=== PATIENT | male | born 1985 | race Caucasian/White ===

== ENCOUNTER 2017-10-28 11:40 | Observation (INO) | payer OTHER ==
[~2017-10-28] VITALS: Ht 170.2 cm; Wt 68.0 kg
[2017-10-28] MEDS ORDERED: IBUPROFEN 200 MG TABLET PO ONE (12:30)
[2017-10-28] MEDS ORDERED: IBUPROFEN 200 MG TABLET ONE (12:35)
[2017-10-28] MEDS ORDERED: ZIPRASIDONE 20 MG INJ IM ONE ×2 (12:54→13:00)
[2017-10-28 12:56] LABS: BASOPHILS # (AUTO) 0.02 x10^3/uL (0-0.1); BASOPHILS % (AUTO) 0 % (0-1); EOSINOPHILS # (AUTO) 0.25 x10^3/uL (0-0.4); EOSINOPHILS % (AUTO) 3 % (1-7); LYMPHOCYTES # (AUTO) 2.39 x10^3/uL (1-3.4); LYMPHOCYTES % (AUTO) 27 % (22-44); MD NO; MEAN CORPUSCULAR HEMOGLOBIN 30.8 pg (27.5-34.5); MEAN CORPUSCULAR HGB CONC 34.2 g/dL (33.2-36.2); MEAN CORPUSCULAR VOLUME 90.1 fL (81-97); MEAN PLATELET VOLUME 9.3 fL (7.4-10.4); MONOCYTES # (AUTO) 0.64 x10^3/uL (0.2-0.8); MONOCYTES % (AUTO) 7 % (2-9); NEUTROPHILS # (AUTO) 5.71 x10^3/uL (1.8-6.8); NEUTROPHILS % (AUTO) 63 % (42-75); PLATELET COUNT 258 x10^3/uL (130-400); RED BLOOD COUNT 4.99 x10^6/uL (4.38-5.82); RED CELL DISTRIBUTION WIDTH 12.7 % (9.4-14.8)
[2017-10-28 13:07] LABS: CALCIUM 8.4 mg/dL (8.5-10.1); CHLORIDE 107 mmol/L (98-107)
[2017-10-28 13:11] LABS: ALBUMIN 3.1 g/dL (3.4-5.0); CREATININE 0.81 mg/dL (0.7-1.3); SALICYLATE LEVEL 2.7 mg/dL (2.8-20.0)
[2017-10-28 13:12] LABS: ACETAMINOPHEN < 2 mcg/mL (10-30)
[2017-10-28 13:33] LABS: ANION GAP 9 mmol/L (5-15)
[2017-10-28 13:39] LABS: AMPHETAMINE SCREEN, URINE Positive (Negative); BARBITURATE SCREEN, URINE Negative (Negative); BENZODIAZEPINE SCREEN, URINE Negative (Negative); CANNABINOID SCREEN, URINE Positive (Negative); COCAINE SCREEN, URINE Negative (Negative); METHADONE SCREEN, URINE Negative (Negative); OPIATE SCREEN, URINE Positive (Negative)
[2017-10-28] MEDS ORDERED: LORazepam 1MG TABLET ONE (15:07)
[2017-10-28] MEDS ORDERED: LORazepam 1MG TABLET PO ONE (15:30)
[2017-10-28] MEDS ORDERED: LORazepam 1MG TABLET PO PRN (21:00)
[2017-10-28] MEDS ORDERED: ONDANSETRON ODT 4 MG PO PRN (21:00)
[2017-10-28 22:43] VITALS: BP 152/84
[2017-10-29 08:24] VITALS: BP 127/77
[2017-10-29] MEDS: LORazepam 1MG TABLET PO PRN (14:40)
[2017-10-29] MEDS: ZIPRASIDONE 20 MG INJ IM PRN (16:09)
[2017-10-29 20:21] VITALS: BP 111/81
[2017-10-30] MEDS: ACETAMINOPHEN 325 MG TABLET PO PRN ×3 (00:02→17:58)
[2017-10-30] MEDS: LORazepam 1MG TABLET PO PRN ×2 (03:07→13:54)
[2017-10-30 07:53] VITALS: BP 131/88
[2017-10-30] MEDS: NICOTINE GUM 2 MG BC PRN ×3 (09:38→17:58)
[2017-10-30] MEDS ORDERED: BENZTROPINE 1 MG TABLET PO PRN (12:00)
[2017-10-30] MEDS ORDERED: BENZTROPINE 1 MG/ML, 2 ML IM PRN (12:00)
[2017-10-30] MEDS: FLUOXETINE HCL 20 MG CAPSULE PO SCH (12:08)
[2017-10-30] MEDS: ZIPRASIDONE 20 MG INJ IM PRN (14:09)
[2017-10-30 19:30] VITALS: BP 116/74
[2017-10-30] MEDS: QUETIAPINE 100MG TABLET PO SCH (21:21)
[2017-10-31 07:45] VITALS: BP 120/81
[2017-10-31] MEDS: FLUOXETINE HCL 20 MG CAPSULE PO SCH (08:01)
[2017-10-31] MEDS: QUETIAPINE 25MG TABLET PO PRN ×2 (08:01→13:46)
[2017-10-31] MEDS: ACETAMINOPHEN 325 MG TABLET PO PRN ×2 (08:09→13:46)
[2017-10-31] MEDS: LORazepam 1MG TABLET PO PRN (10:52)
[2017-10-31] MEDS: NICOTINE GUM 2 MG BC PRN ×2 (13:46→16:59)
[2017-10-31] MEDS ORDERED: NICOTINE GUM 2 MG BC ONE (16:56)
[2017-10-31 19:16] VITALS: BP 120/72
[2017-10-31] MEDS: QUETIAPINE 100MG TABLET PO SCH (20:02)
[2017-11-01] MEDS: ACETAMINOPHEN 325 MG TABLET PO PRN ×2 (00:12→20:05)
[2017-11-01] MEDS: LORazepam 1MG TABLET PO PRN ×2 (00:12→16:28)
[2017-11-01] MEDS: FLUOXETINE HCL 20 MG CAPSULE PO SCH (08:12)
[2017-11-01] MEDS: ZIPRASIDONE 20 MG INJ IM PRN (08:19)
[2017-11-01 08:34] VITALS: BP 116/76
[2017-11-01] MEDS: NICOTINE GUM 2 MG BC PRN ×2 (16:28→18:31)
[2017-11-01 20:00] VITALS: BP 117/75
[2017-11-01] MEDS: QUETIAPINE 100MG TABLET PO SCH (20:05)
[2017-11-02] MEDS: ACETAMINOPHEN 325 MG TABLET PO PRN ×3 (02:14→16:44)
[2017-11-02 07:28] VITALS: BP 119/76
[2017-11-02] MEDS: FLUOXETINE HCL 20 MG CAPSULE PO SCH (09:11)
[2017-11-02] MEDS: NICOTINE GUM 2 MG BC PRN ×4 (10:52→20:02)
[2017-11-02 19:55] VITALS: BP 114/79
[2017-11-02] MEDS ORDERED: QUETIAPINE 200 MG TABLET PO SCH (21:00)
[2017-11-03 08:18] VITALS: BP 133/81
[2017-11-03] MEDS: FLUOXETINE HCL 20 MG CAPSULE PO SCH (08:24)
[2017-11-03] MEDS: ACETAMINOPHEN 325 MG TABLET PO PRN (08:27)
[2017-11-03] MEDS: NICOTINE GUM 2 MG BC PRN (08:27)
== END 2017-11-03 10:47 | disposition home or self-care (01) ==
LOC: ED 13:37 → EDIP 20:15 → INTOOBSV 20:15 → SUATTDRO 20:17 → 2N 22:42
PROVIDERS: ADMIT Hospitalist; ATTEND Internal Medicine
DX: T14.91XA Suicide attempt, initial encounter (principal); F25.0 Schizoaffective disorder, bipolar type; F11.20 Opioid dependence, uncomplicated; F15.20 Other stimulant dependence, uncomplicated; G47.00 Insomnia, unspecified; X83.8XXA Intentional self-harm by other specified means, initial encounter; Y93.89 Activity, other specified; Y92.89 Other specified places as the place of occurrence of the external cause; Y99.8 Other external cause status; Z59.0 Homelessness; Z81.8 Family history of other mental and behavioral disorders; Z91.14 Patient's other noncompliance with medication regimen; Z91.5 Personal history of self-harm
CPT/HCPCS: 36415; 80048; 80307; 80329; 82040; 85025; 96372; 99285; G0378; J3486; G0480